=== PATIENT | female | born 1980 | race Caucasian/White ===

== ENCOUNTER 2017-10-09 17:31 | Emergency (ER) | payer BC ==
--- NOTE | 2017-10-09 19:16 | RAD ---
HISTORY: Right calf pain and edema TECHNIQUE: Multiple transverse and longitudinal ultrasound images were obtained of the veins of the right lower extremity using grayscale, color Doppler, and spectral Doppler imaging with and without compression and with augmentation. FINDINGS: VEINS: The common femoral vein, deep femoral vein, femoral vein and popliteal vein are compressible throughout their course, with normal flow on color Doppler imaging and normal response to augmentation on spectral Doppler imaging. SOFT TISSUES: Grossly normal. No large popliteal fossa cyst was identified. IMPRESSION: No sonographic evidence of deep vein thrombosis.
--- NOTE | 2017-10-09 19:21 | ED ---
Lower Extremity - HPI Summary HPI Summary: 37-year-old female presents with right calf pain for the past couple days. It is located over her varicose veins. She has a family history of A. fib and denies any family history of DVTs. She is nonsmoker. She denies any chest pressures or shortness of breath. Recent travel or surgeries. She is not on control. No injury. She admits to occasional numbness and tingling. She has not tried anything for her symptoms. - History of Current Complaint Chief Complaint: EDExtremityLower Stated Complaint: RT LEG PAIN Time Seen by Provider: 10/09/17 17:56 Pain Intensity: 2 - Allergies/Home Medications Allergies/Adverse Reactions: Allergies Allergy/AdvReac Type Severity Reaction Status Date / Time No Known Allergies Allergy Verified 10/09/17 17:36 PMH/Surg Hx/FS Hx/Imm Hx Endocrine/Hematology History: Denies: Hx Anticoagulant Therapy Cardiovascular History: Denies: Hx Hypertension Infectious Disease History: No Infectious Disease History: Denies: Traveled Outside the [place] in Last 30 Days - Family History Known Family History: Negative: Blood Disorder - Social History Alcohol Use: Occasionally Substance Use Type: Reports: None Smoking Status (MU): Never Smoked Tobacco Review of Systems Negative: Fever Negative: Chest Pain Negative: Shortness Of Breath Positive: Myalgia - right calf pain All Other Systems Reviewed And Are Negative: Yes Physical Exam Triage Information Reviewed: Yes Vital Signs On Initial Exam: Initial Vitals Temp Pulse Resp BP Pulse Ox 97.7 F 76 16 142/85 98 10/09/17 17:32 10/09/17 17:32 10/09/17 17:32 10/09/17 17:32 10/09/17 17:32 Vital Signs Reviewed: Yes Appearance: Positive: Well-Appearing Skin: Positive: Warm, Dry Head/Face: Positive: Normal Head/Face Inspection Eyes: Positive: Normal, Conjunctiva Clear ENT: Positive: Pharynx normal Respiratory/Lung Sounds: Positive: Clear to Auscultation, Breath Sounds Present Cardiovascular: Positive: Normal, RRR Musculoskeletal: Positive: Strength/ROM Intact - right calf, Other - good pulses , tenderness over varciose veins right calf. Negative: [place] Sign Right, Edema Right Neurological: Positive: Normal Psychiatric: Positive: Normal Diagnostics - Vital Signs Vital Signs Temp Pulse Resp BP Pulse Ox 10/09/17 17:32 97.7 F 76 16 142/85 98 - Laboratory Lab Statement: Any lab studies that have been ordered have been reviewed, and results considered in the medical decision making process. - Ultrasound No standard instances Ultrasound Interpretation: No Acute Changes Ultrasound Interpretation Completed By: Radiologist Lower Extremity Course/Dx - Course Course Of Treatment: 37-year-old female presents with right calf pain for the past couple days. It is located over her varicose veins. She has a family history of A. fib and denies any family history of DVTs. She is nonsmoker. She denies any chest pressures or shortness of breath. Recent travel or surgeries. She is not on control. No injury. She admits to occasional numbness and tingling. She has not tried anything for her symptoms. On exam tenderness over right varicose veins. Negative Homans. Neurovascular intact. Ultrasound normal. We'll treat with rice and told to get compression socks. Patient understands agrees with plan. - Diagnoses Differential Diagnosis/HQI/PQRI: Positive: DVT, Sprain, Strain Provider Diagnoses: Right calf pain Discharge - Sign-Out/Discharge Documenting (check all that apply): Discharge/Admit/Transfer - Discharge Plan Condition: Good Disposition: HOME Patient Education Materials: Leg Pain (ED) Referrals: [facility] [place] PH[facility]IAN REFERRAL [Outside] Additional Instructions: Use compression socks Ice Elevate Take Tylenol for pain every 6 hours Follow up with primary within 5 days Return to ED if develop any new or worsening symptoms - Billing Disposition and Condition Condition: GOOD Disposition: Home
[2017-10-09 19:38] VITALS: BP 132/74
== END 2017-10-09 19:35 | disposition home or self-care (01) ==
LOC: ED 17:31
DX: M79.661 Pain in right lower leg (principal); I83.91 Asymptomatic varicose veins of right lower extremity; R60.0 Localized edema; Z82.49 Family history of ischemic heart disease and other diseases of the circulatory system; Z83.2 Family history of diseases of the blood and blood-forming organs and certain disorders involving the immune mechanism
CPT/HCPCS: 99282